=== PATIENT | male | born 1970 | race African-American/Black ===

== ENCOUNTER 2016-10-11 20:28 | Emergency (ER) | payer OTHER, MEDICARE ==
[2016-10-11 20:37] VITALS: PULSE 89; TEMP 98.3; BMI 38.0
[2016-10-11] MEDS ORDERED: KETOROLAC TROMETHAMINE 10 MG TAB PO ONE (20:42)
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
[2016-10-11 23:19] VITALS: BP 170/70
== END 2016-10-11 23:15 | disposition home or self-care (01) ==
LOC: ED 20:28
DX: M54.30 Sciatica, unspecified side (principal)
CPT/HCPCS: 72110; 73502; 99283; J3490